=== PATIENT | female | born 1960 | race Two or more races ===

== ENCOUNTER 2017-11-26 07:51 | Outpatient (CLI) | payer OTHER ==
[~2017-11-26 07:51] MED LIST: CELEBREX50 MG PO
== END 2017-11-26 08:12 | disposition home or self-care (01) ==
LOC: LAB 07:51
DX: E55.9 Vitamin D deficiency, unspecified (principal); M85.9 Disorder of bone density and structure, unspecified; E56.1 Deficiency of vitamin K; E83.42 Hypomagnesemia

== ENCOUNTER 2018-06-07 08:58 | Day surgery (SDC) | payer OTHER | END 2018-06-07 18:30 | disposition home or self-care (01) | LOC: CIR.AMB 08:58 | DX: T84.84XD Pain due to internal orthopedic prosthetic devices, implants and grafts, subsequent encounter (principal); S92.312K Displaced fracture of first metatarsal bone, left foot, subsequent encounter for fracture with nonunion; S92.322K Displaced fracture of second metatarsal bone, left foot, subsequent encounter for fracture with nonunion | CPT/HCPCS: 28735; 20680; 20902; 28288 ×2; C1776 ==

== ENCOUNTER 2018-09-16 10:14 | Outpatient (CLI) | payer OTHER | END 2018-09-16 10:21 | disposition home or self-care (01) | LOC: RAD 501 10:14 | DX: M19.172 Post-traumatic osteoarthritis, left ankle and foot (principal) ==

== ENCOUNTER 2022-05-21 08:46 | Outpatient (CLI) | payer OTHER | END 2022-05-21 08:54 | disposition home or self-care (01) | LOC: RAD 08:46 | PROVIDERS: ATTEND Orthopaedic Surgery | DX: M79.672 Pain in left foot (principal) ==

== ENCOUNTER 2022-06-02 07:21 | Outpatient (CLI) | payer OTHER ==
[2022-06-12] MEDS ORDERED: RELAFEN DS1000 MG (12:33)
== END 2022-06-02 07:32 | disposition home or self-care (01) ==
LOC: LAB 07:21 → EKG 07:21
PROVIDERS: ATTEND Orthopaedic Surgery
DX: I49.9 Cardiac arrhythmia, unspecified (principal); I10 Essential (primary) hypertension; Z76.89 Persons encountering health services in other specified circumstances

== ENCOUNTER 2022-06-17 05:15 | Day surgery (SDC) | payer OTHER ==
[~2022-06-17 05:15] MED LIST changes: +RELAFEN DS1000 MG
== END 2022-06-17 15:55 | disposition home or self-care (01) ==
LOC: CIR.AMB 05:15
PROVIDERS: ATTEND Orthopaedic Surgery
DX: T84.84XA Pain due to internal orthopedic prosthetic devices, implants and grafts, initial encounter (principal); M65.862 Other synovitis and tenosynovitis, left lower leg; Z20.822 Contact with and (suspected) exposure to COVID-19